=== PATIENT | male | born 1960 | race Caucasian/White ===

== ENCOUNTER → 2021-06-22 | Outpatient (CLI) | payer OTHER | LOC: KOH-I 06-09 11:00 | DX: F17.210 Nicotine dependence, cigarettes, uncomplicated (principal) | CPT/HCPCS: 71271 ==

== ENCOUNTER → 2021-11-22 | Outpatient (CLI) | payer OTHER | LOC: KOH-I 11:26 | DX: R91.1 Solitary pulmonary nodule (principal) | CPT/HCPCS: 71250 ==

== ENCOUNTER → 2021-12-22 | Day surgery (SDC) | payer OTHER ==
[~2021-12-22] MED LIST: FLONASE ALLER15.8 ML; HYDROXYZINE HCL10 MG PO; PROAIR DIGIHAL90 MCG INH; SYMBICORT 16010.2 GM INH
== END | disposition home or self-care (01) ==
LOC: OR 05:47
DX: D12.4 Benign neoplasm of descending colon (principal); J44.9 Chronic obstructive pulmonary disease, unspecified; E78.5 Hyperlipidemia, unspecified; I10 Essential (primary) hypertension; N40.0 Benign prostatic hyperplasia without lower urinary tract symptoms; Z87.891 Personal history of nicotine dependence; Z79.899 Other long term (current) drug therapy
CPT/HCPCS: J2704